=== PATIENT | female | born 1975 | race Caucasian/White ===

== ENCOUNTER 2018-09-06 12:46 | Emergency (ER) | payer SELFPAY ==
--- NOTE | 2018-09-06 13:03 | PDOC ---
Rapid Medical Evaluation Time Seen by Provider: 09/06/18 13:02 Medical Evaluation: Allergies Allergy/AdvReac Type Severity Reaction Status Date / Time No Known Allergies Allergy Verified 11/28/15 14:41 09/06/18 13:02 I have performed a brief in-person evaluation of this patient. The patient presents with a chief complaint of: right lower molar pain Pertinent physical exam findings: deferred I have ordered the following: nothing The patient will proceed to the ED for further evaluation. Discharge Disposition - Diagnosis Toothache - Referrals - Patient Instructions - Post Discharge Activity
[2018-09-06 13:05] VITALS: BP 139/85; PULSE 116; TEMP 98; BMI 38.9
[2018-09-06] MEDS ORDERED: IBUPROFEN 600 MG TABLET (FP) PO ONE ×2 (13:06→13:27)
--- NOTE | 2018-09-06 13:09 | PDOC ---
History of Present Illness - General Chief Complaint: Toothache Stated Complaint: TOOTHACHE Time Seen by Provider: 09/06/18 13:02 History Source: Patient Exam Limitations: No Limitations - History of Present Illness Initial Comments: 09/06/18 13:07 CC: Right lower molar toothache Past History - Past Medical History Allergies/Adverse Reactions: Allergies Allergy/AdvReac Type Severity Reaction Status Date / Time No Known Allergies Allergy Verified 09/06/18 13:02 Home Medications: Ambulatory Orders Penicillin V Potassium [Pen Vee K -] 500 mg PO QID #28 tablet 09/06/18 - Suicide/Smoking/Psychosocial Hx Smoking History: Never smoked Have you smoked in the past 12 months: No Hx Alcohol Use: No Drug/Substance Use Hx: No Substance Use Type: None Review of Systems - Review of Systems Able to Perform ROS?: Yes Is the patient limited [place] proficient: No Constitutional: No: Symptoms Reported HEENTM: Yes: See HPI Respiratory: No: Symptoms reported Cardiac (ROS): No: Symptoms Reported ABD/GI: No: Symptoms Reported : No: Symptoms Reported Musculoskeletal: No: Symptoms Reported Integumentary: No: Symptoms Reported Neurological: No: Symptoms reported Endocrine: No: Symptoms Reported Hematologic/Lymphatic: No: Symptoms Reported *Physical Exam - Physical Exam General Appearance: Yes: Appropriately Dressed. No: Apparent Distress HEENT: positive: Other (poor dentition. obvious dental rajesh present to tooth 31. No palpable abscess noted.) Respiratory/Chest: positive: Lungs Clear, Normal Breath Sounds. negative: Respiratory Distress, Accessory Muscle Use Cardiovascular: positive: Regular Rate, Edema, Tachycardia Gastrointestinal/Abdominal: positive: Normal Bowel Sounds, Soft. negative: Tender Medical Decision Making - Medical Decision Making 09/06/18 13:04 A/P: 43yo woman with toothache [id number] discharge *DC/Admit/Observation/Transfer Diagnosis at time of Disposition: Toothache - Discharge Dispostion Disposition: HOME Condition at time of disposition: Stable Decision to Admit order: No - Prescriptions Prescriptions: Penicillin V Potassium [Pen Vee K -] 500 mg PO QID #28 tablet - Referrals - Patient Instructions Printed Discharge Instructions: DI for Dental Pain Additional Instructions: Go to [facility] right now for dental care. Take antibiotics as prescribed unless directed otherwise by dentist. - Post Discharge Activity
== END 2018-09-06 13:40 | disposition home or self-care (01) ==
LOC: JERFT 12:46
DX: K08.89 Other specified disorders of teeth and supporting structures (principal)
CPT/HCPCS: 99281-25

== ENCOUNTER 2019-01-11 18:50 | Emergency (ER) | payer OTHER ==
[2019-01-11 19:01] VITALS: BP 143/78; PULSE 98; TEMP 98.3; BMI 38.9
--- NOTE | 2019-01-11 19:56 | PDOC ---
History of Present Illness - General Chief Complaint: Ear Problem Stated Complaint: LEFT EAR PAIN Time Seen by Provider: 01/11/19 19:12 - History of Present Illness Initial Comments: 01/11/19 19:55 43-year-old female with nasal congestion without systemic symptoms x5 days now developing left ear pain since last night no comorbidities Past History - Past Medical History Allergies/Adverse Reactions: Allergies Allergy/AdvReac Type Severity Reaction Status Date / Time No Known Allergies Allergy Verified 01/11/19 18:58 Home Medications: Ambulatory Orders Penicillin V Potassium [Pen Vee K -] 500 mg PO QID #28 tablet 09/06/18 Budesonide [Rhinocort Allergy] 1 spray NS ONCE #1 spray.pump 01/11/19 Cetirizine HCl/Pseudoephedrine [Zyrtec-D Tablet] 1 each PO DAILY #30 tab.er.12h 01/11/19 COPD: No - Immunization History Immunization Up to Date: Yes - Psycho Social/Smoking Cessation Hx Smoking History: Current every day smoker Have you smoked in the past 12 months: No Number of Cigarettes Smoked Daily: 10 Information on smoking cessation initiated: Yes Hx Alcohol Use: No Drug/Substance Use Hx: No Substance Use Type: None Review of Systems - Review of Systems Constitutional: No: Fever HEENTM: Yes: Ear Pain, Nose Congestion *Physical Exam - Vital Signs Last Vital Signs Temp Pulse Resp BP Pulse Ox 98.3 F 98 H 19 143/78 98 01/11/19 18:52 01/11/19 18:52 01/11/19 18:52 01/11/19 18:52 01/11/19 18:52 - Physical Exam 01/11/19 19:55 GENERAL: The patient is awake, alert, and fully oriented, in no acute distress. HEAD: Normal with no signs of trauma. EYES: sclera anicteric, conjunctiva clear. ENT: Ears normal tympanic membranes normal oropharynx clear uvula midline NECK: Normal range of motion LUNGS: Breath sounds equal, clear to auscultation bilaterally. No wheezes, and no crackles. HEART: S1 and S2 without murmur, rub or gallop. ABDOMEN: Soft, nontender, normoactive bowel sounds. No guarding, no rebound. No masses. EXTREMITIES: Normal range of motion, no edema. No clubbing or cyanosis. No cords, erythema, or tenderness. NEUROLOGICAL: Cranial nerves II through XII grossly intact. Normal speech, normal gait. PSYCH: Normal mood, normal affect. SKIN: Warm, Dry, normal turgor, no rashes or lesions noted. Medical Decision Making - Medical Decision Making 01/11/19 19:55 Benign examination most likely sinus congestion from upper respiratory infection we will treat with antihistamine with decongestant and steroidal nasal spray follow-up with ENT Discharge - Discharge Information Problems reviewed: Yes Clinical Impression/Diagnosis: Viral upper respiratory infection Condition: Stable Disposition: HOME - Admission No - Additional Discharge Information Prescriptions: Budesonide [Rhinocort Allergy] 1 spray NS ONCE #1 spray.pump Cetirizine HCl/Pseudoephedrine [Zyrtec-D Tablet] 1 each PO DAILY #30 tab.er.12h - Follow up/Referral Referrals: Ortiz Ayala MD [Primary Care Provider] - Ellis Ibanez MD [Staff Physician] - - Patient Discharge Instructions Additional Instructions: Please take the Sudafed and use the nasal spray as directed. Return to the emergency room for worsening symptoms. Without fail, please follow-up with your nose and throat doctor in 2 to 3 days for further evaluation and treatment options. - Post Discharge Activity
== END 2019-01-11 20:05 | disposition home or self-care (01) ==
LOC: JER 18:50 → JERFT 18:50
DX: J06.9 Acute upper respiratory infection, unspecified (principal); F17.210 Nicotine dependence, cigarettes, uncomplicated
CPT/HCPCS: 99281-25